=== PATIENT | female | born 1960 | race Caucasian/White ===

== ENCOUNTER → 2018-04-16 06:34 | Outpatient (CLI) | payer MEDICARE, MEDICAID, SELFPAY ==
--- NOTE | 2018-04-16 06:39 | ECHOD_ITS ---
Reason For Study: CAD/ASHD Procedure This was a 2D Doppler, Color Flow transthoracic echocardiogram. The exam was of adequate technical quality. Exam performed in department. Left Ventricle Normal LV size. Left ventricular systolic function is normal. The estimated ejection fraction is 65 %. Transmitral doppler flow suggestive of impaired relaxation of left ventricle. No regional wall motion abnormalities noted. Right Ventricle Normal RV size. Normal systolic function. Atria Normal left atrium. Normal right atrium. No doppler evidence for ASD. Mitral Valve There is no mitral annular calcification. Normal mitral valve. Trivial mitral valve insufficiency. Tricuspid Valve Normal tricuspid valve. Mild tricuspid valve insufficiency. Right ventricular systolic pressure estimated to be 34 mmHg. Aortic Valve The aortic valve is not well visualized. Pulmonic Valve The pulmonic valve is not well visualized. Trivial pulmonic valve insufficiency. Great Vessels Normal sized aortic root. Pericardium/Pleural No pericardial effusion. MMode/2D Measurements & Calculations LVIDd: 4.5 cm IVSd: 1.0 cm LVOT diam: 2.0 cm LVIDs: 2.6 cm LVPWd: 1.2 cm LVOT area: 3.1 cm2 RVDd: 3.3 cm FS: 41.8 % Ao root diam: 3.2 cm LAV(MOD-sp4): 29.3 ml LA A4 area: 13.9 cm2 LA dimension: 3.4 cm RA A4 area: 12.8 cm2 Time Measurements MV dec time: 0.23 sec Doppler Measurements & Calculations MV E max tra: 84.7 cm/sec Lat Peak E' Tra: 9.2 cm/sec Med Peak E' Tra: 8.4 cm/sec MV A max tra: 97.1 cm/sec E/E' lat: 9.2 E/E' med: 10.1 MV E/A: 0.87 MV V2 max: 116.8 cm/sec MV P1/2t max tra: 113.1 cm/sec Ao V2 max: 150.2 cm/sec MV max P.5 mmHg MV P1/2t: 100.7 msec Ao max P.0 mmHg MV V2 mean: 58.6 cm/sec MV dec slope: 329.0 cm/sec2 Ao V2 mean: 96.8 cm/sec MV mean P.7 mmHg MVA(P1/2t): 2.2 cm2 Ao mean P.2 mmHg MV V2 VTI: 38.7 cm Ao V2 VTI: 33.0 cm MVA(VTI): 2.2 cm2 ISSA(I,D): 2.5 cm2 ISSA(V,D): 2.7 cm2 LV V1 max: 128.4 cm/sec SV(LVOT): 83.8 ml PA V2 max: 98.9 cm/sec LV V1 max P.6 mmHg LV V1 mean P.5 mmHg LV V1 mean: 69.8 cm/sec LV V1 VTI: 26.9 cm TR max tra: 278.8 cm/sec TR max P.1 mmHg Interpretation Summary Left ventricular systolic function is normal. The estimated ejection fraction is 65 %. Trivial mitral valve insufficiency. Mild tricuspid valve insufficiency. Trivial pulmonic valve insufficiency. Right ventricular systolic pressure estimated to be 34 mmHg. Transmitral doppler flow suggestive of impaired relaxation of left ventricle Ordering Physician: Irving Sheikh Referring Physician: Irving Sheikh Performed By: Alexi Jones [facility]
--- NOTE | 2018-04-16 10:53 | STRESSREP ---
Stress Test Report Date: 04/16/2018 Procedure: Pharmacologic stress nuclear imaging study Indications: Chest pain Consent: Per the patient Procedure: The patient underwent pharmacologic (Regadenoson) evaluation with a peak heart rate of 84 beats per minute (52 predicted maximal heart rate) and a peak blood pressure of 152/70 mmHg. The baseline ECG demonstrated sinus bradycardia. The peak pharmacologic ECG demonstrated no obvious ECG changes. [There were no cardiac dysrhythmias pretest, during pharmacologic infusion, or recovery]. [There was no complaint of chest discomfort during pharmacologic infusion or recovery]. The examination was discontinued secondary to completion of protocol. Impression: 1. Pharmacologic (Regadenoson) evaluation 2. Peak pharmacologic ECG with no obvious ECG changes. 3. There were no cardiac dysrhythmias pretest, during pharmacologic infusion, or recovery 4. Nuclear images pending Myocardial perfusion imaging study: Technique: The patient was injected with 10.8 millicuries of technetium 99m Cardiolite and subsequently rest SPECT Cardiolite nuclear imaging was obtained in the horizontal long, vertical long, and short axis views. The patient underwent pharmacologic (Regadenoson) evaluation with a peak heart rate of 84 beats per minute (52% percent predicted maximal heart rate) and a peak blood pressure of 152/70 mmHg. The patient was injected with 33.7 millicuries of technetium 99m Cardiolite and subsequently stress SPECT Cardiolite nuclear imaging was obtained in the horizontal long, vertical long, and short axis views. A gated Cardiolite study at peak stress was obtained. Interpretation: Rest and stress SPECT Cardiolite nuclear imaging status post realignment, normalization, and attenuation correction demonstrate relative uniform tracer uptake and myocardial perfusion appearing within normal limits. [There is end systolic thickening and brightening]. [The gated Cardiolite study demonstrates myocardial thickening and inward wall motion]. The reported LVEF is 84 %. Impression: 1. [Rest and stress SPECT Cardiolite nuclear imaging demonstrate relative uniform tracer uptake and myocardial perfusion appearing within normal limits]. 2. The gated Cardiolite study reports an LVEF of before 84 %. This note was generated with [employer] software. It may contain incorrect words, spelling, and punctuation that were not noted in checking the note before signing.
== END ==
PROVIDERS: Family Provider Internal Medicine; PCP Internal Medicine; Visit Provider Internal Medicine Cardiovascular Disease
DX: I25.10 Atherosclerotic heart disease of native coronary artery without angina pectoris (principal); Z95.5 Presence of coronary angioplasty implant and graft; R07.9 Chest pain, unspecified
CPT/HCPCS: 78452; 93017; 93306; A9500; A4216; J2785

== ENCOUNTER → 2021-05-14 07:50 | Outpatient (CLI) | payer MEDICARE, MEDICAID, SELFPAY ==
[2021-05-02 15:38] VITALS: BMI 21.7
--- NOTE | 2021-05-14 07:52 | AAVD_ITS ---
Reason For Study: bruit, pulsatile abdomen Aorta Measurements Aorta Doppler Measurements Proximal aorta measures1.25 x 1.24cm. in cross- Peak systolic flow velocities within the proximal sectional axis. aorta measure 103 cm/sec. Proximal aorta measures1.23cm. in longitudinal Peak systolic flow velocities within the mid aorta axis. measure 116.1 cm/sec. Mid aorta measures1.13 x 1.16cm. in cross- Peak systolic flow velocities within the distal sectional axis. aorta measure 118.3 cm/sec. Mid aorta measures1.12cm. in longitudinal axis. Distal aorta measures1.18 x 1.18cm. in cross- sectional axis. Distal aorta measures1.18cm. in longitudinal axis. Left Iliac Artery Left iliac artery measures .65 x .69 cm. in the cross-sectional axis. Left iliac artery measures .64 cm. in the longitudinal axis. Peak systolic velocity in the left iliac artery measures 138 cm/sec. Right Iliac Artery Right iliac artery measures .59 x .58 cm. in the cross-sectional axis. Right iliac artery measures .64 cm. in the longitudinal axis. Peak systolic velocity in the right iliac artery measures 91.9 cm/sec. Procedure Aorta IVC Iliac vasculature or bypass grafts [id number]. The exam was diagnostic. Exam performed in department. VL/Abd Aortic/IVC Duplex scan Interpretation Summary No evidence of aortic iliac aneurysm or stenosis. Ordering Physician: Irving Sheikh Performed By: Jt Ortega RVT and Student
--- NOTE | 2021-05-14 07:52 | ECHOD_ITS ---
Reason For Study: HTN, CHF, HLD Procedure This was a 2D Doppler, Color Flow transthoracic echocardiogram. The exam was of adequate technical quality. Exam performed in department. Left Ventricle Normal LV size. Sigmoid septum. Left ventricular systolic function is normal. The estimated ejection fraction is 65 %. Diastolic function is indeterminate. No regional wall motion abnormalities noted. Right Ventricle Normal RV size. Normal systolic function. Mitral Valve There is no mitral annular calcification. Normal mitral valve. Mild (1+) mitral valve insufficiency. Tricuspid Valve Normal tricuspid valve. Moderate (2+) tricuspid valve insufficiency. Right ventricular systolic pressure estimated to be 33 mmHg. Aortic Valve Trisinus/trileaflet aortic valve. Normal aortic valve. Pulmonic Valve Normal pulmonic valve. Mild (1+) pulmonic valve insufficiency. Great Vessels Normal sized aortic root. Pericardium/Pleural No pericardial effusion. MMode/2D Measurements & Calculations LVIDd: 4.8 cm IVSd: 0.77 cm Ao root diam: 3.2 cm LVIDs: 3.4 cm LVPWd: 0.79 cm RVDd: 3.3 cm FS: 30.4 % LAV(MOD-sp4): 31.3 ml LVAd ap4: 23.2 cm2 LVAd ap2: 23.5 cm2 LVLd ap4: 6.9 cm LVLd ap2: 7.4 cm EDV(MOD-sp4): 64.3 ml EDV(MOD-sp2): 62.7 ml EDV(sp4-el): 66.7 ml EDV(sp2-el): 63.0 ml LVAs ap4: 12.2 cm2 LVAs ap2: 14.1 cm2 LVLs ap4: 5.3 cm LVLs ap2: 5.6 cm ESV(MOD-sp4): 23.3 ml ESV(MOD-sp2): 30.3 ml ESV(sp4-el): 23.7 ml ESV(sp2-el): 30.3 ml EF(MOD-sp4): 63.7 % EF(MOD-sp2): 51.7 % EF(sp4-el): 64.4 % SV(MOD-sp4): 41.0 ml SV(MOD-sp2): 32.5 ml SV(sp4-el): 42.9 ml LA dimension(2D): 3.4 cm LA A4 area: 13.7 cm2 RA A4 area: 10.2 cm2 Time Measurements MV dec time: 0.21 sec Doppler Measurements & Calculations MV E max tra: 79.0 cm/sec Lat Peak E' Tra: 9.2 cm/sec Med Peak E' Tra: 5.5 cm/sec MV A max tra: 114.4 cm/sec E/E' lat: 8.6 E/E' med: 14.4 MV E/A: 0.69 Ao V2 max: 134.0 cm/sec LV V1 max: 99.1 cm/sec PA V2 max: 98.2 cm/sec Ao max P.2 mmHg LV V1 max P.9 mmHg PI end-d tra: 109.3 cm/sec TR max tra: 272.4 cm/sec TR max P.7 mmHg ECHO/Echo Complete Interpretation Summary Left ventricular systolic function is normal. The estimated ejection fraction is 65 %. Sigmoid septum. Mild (1+) mitral valve insufficiency. Moderate (2+) tricuspid valve insufficiency. Mild (1+) pulmonic valve insufficiency. Right ventricular systolic pressure estimated to be 33 mmHg. Diastolic function is indeterminate. Ordering Physician: Irving Sheikh Referring Physician: VIANCA ZAZUETA Performed By: Khadra Tolliver, JASWANT, RVT
== END ==
PROVIDERS: PCP Internal Medicine; Referring Provider Internal Medicine Cardiovascular Disease; Visit Provider Internal Medicine Cardiovascular Disease
DX: I25.10 Atherosclerotic heart disease of native coronary artery without angina pectoris (principal); R09.89 Other specified symptoms and signs involving the circulatory and respiratory systems; I11.0 Hypertensive heart disease with heart failure; I50.9 Heart failure, unspecified; E78.5 Hyperlipidemia, unspecified; Z95.5 Presence of coronary angioplasty implant and graft; R19.8 Other specified symptoms and signs involving the digestive system and abdomen
CPT/HCPCS: 93306; 93978

== ENCOUNTER → 2021-05-17 06:43 | Outpatient (CLI) | payer MEDICARE, MEDICAID, SELFPAY ==
[2021-05-02 15:38] VITALS: BMI 21.7
--- NOTE | 2021-05-17 10:55 | STRESSREP ---
Stress Test Report Date: 05-17-2021 Procedure: Pharmacologic stress nuclear imaging study Indications: CAD; PCI; preoperative cardiovascular assessment Consent: Per the patient Procedure: The patient underwent pharmacologic (Regadenoson 0.4mg ) evaluation with a peak heart rate of 117 beats per minute (74%predicted maximal heart rate) and a peak blood pressure of 188/76 mmHg. The baseline ECG demonstrated sinus rhythm. The peak pharmacologic ECG demonstrated no obvious ECG changes. There was an occasional PAC during recovery. There was no complaint of chest discomfort during pharmacologic infusion or recovery. The examination was discontinued secondary to completion of protocol. Impression: 1. Pharmacologic (Regadenoson) evaluation 2. Peak pharmacologic ECG with no obvious ECG changes. 3. There was an occasional PAC during recovery. 4. Nuclear images pending Myocardial perfusion imaging study: Technique: The patient was injected with 10.2 millicuries of technetium 99m Cardiolite and subsequently rest SPECT Cardiolite nuclear imaging was obtained in the horizontal long, vertical long, and short axis views. The patient underwent pharmacologic (Regadenoson) evaluation with a peak heart rate of 117 beats per minute (74% percent predicted maximal heart rate) and a peak blood pressure of 188/76 mmHg. The patient was injected with 33.1 millicuries of technetium 99m Cardiolite and subsequently stress SPECT Cardiolite nuclear imaging was obtained in the horizontal long, vertical long, and short axis views. A gated Cardiolite study at peak stress was obtained. Interpretation: Rest and stress SPECT Cardiolite nuclear imaging status post realignment, normalization, and attenuation correction demonstrate relative uniform tracer uptake and myocardial perfusion appearing within normal limits. There is end systolic thickening and brightening. The gated Cardiolite study demonstrates myocardial thickening and inward wall motion. The reported LVEF is 72%. Impression: 1. Rest and stress SPECT Cardiolite nuclear imaging demonstrate relative uniform tracer uptake and myocardial perfusion appearing within normal limits. 2. The gated Cardiolite study reports an LVEF of 72%. This note was generated with [employer] software. It may contain incorrect words, spelling, and punctuation that were not noted in checking the note before signing.
== END ==
PROVIDERS: PCP Internal Medicine; Referring Provider Internal Medicine Cardiovascular Disease; Visit Provider Internal Medicine Cardiovascular Disease
DX: R09.89 Other specified symptoms and signs involving the circulatory and respiratory systems (principal); R19.8 Other specified symptoms and signs involving the digestive system and abdomen; I25.10 Atherosclerotic heart disease of native coronary artery without angina pectoris; I50.9 Heart failure, unspecified; E78.5 Hyperlipidemia, unspecified; I11.0 Hypertensive heart disease with heart failure; Z95.5 Presence of coronary angioplasty implant and graft
CPT/HCPCS: 78452; 93017; A9500; A4216; J2785

== ENCOUNTER → 2022-09-05 | Outpatient (CLI) | payer MEDICARE, MEDICAID, SELFPAY ==
--- NOTE | 2022-09-05 12:55 | CDU_ITS ---
Reason For Study: Bruit Rt. Velocities/BP Lt. Velocities/BP Prox CCA 99.8/13.9 cm/sec. Prox CCA 90.6/13.9 cm/sec. Mid CCA 94.2/13.9 cm/sec. Mid CCA 77.8/15.7 cm/sec. Dist CCA 63.2/12.1 cm/sec. Dist CCA 66.8/13.9 cm/sec. Prox ICA 56.4/11.9 cm/sec. Prox ICA 168.1/38.6 cm/sec. Mid ICA 69.4/18.0 cm/sec. Mid ICA 186.3/24.6 cm/sec. Dist ICA 65.0/15.5 cm/sec. Dist ICA 127.1/19.4 cm/sec. Rt. ICA/CCA = 0.7. Lt. ICA/CCA = 2.4. Prox ECA 87.5/6.2 cm/sec. Prox ECA 135.2/18.9 cm/sec. Rt. Vert. 19.9/4.2 cm/sec. Lt. Vert. 37.4/11.9 cm/sec. Right Extracranial There is heterogeneous, smooth atherosclerotic plaque noted in the right common carotid artery. There is heterogeneous, irregular atherosclerotic plaque noted in the right internal carotid artery. There is heterogeneous, irregular atherosclerotic plaque noted in the right external carotid artery. Antegrade flow is noted in the right vertebral artery. Left Extracranial There is heterogeneous, smooth atherosclerotic plaque noted in the left common carotid artery. There is heterogeneous, irregular atherosclerotic plaque noted in the left internal carotid artery. There is heterogeneous, irregular atherosclerotic plaque noted in the left external carotid artery. Antegrade flow is noted in the left vertebral artery. Procedure Carotid Duplex [id number]. This is a Carotid Duplex examination using B-mode, color flow and specral Doppler. The exam was diagnostic. Exam performed in department. VL/Carotid Duplex Ultrasound Interpretation Summary Irregular heterogenous plaque at the proximal right internal carotid artery wit h less than 50% stenosis Less than 50% stenosis right external carotid artery Irregular plaque at the proximal left internal carotid artery with 50 [address] 69% [address] enosis Less than 50% stenosis left external carotid artery Patent antegrade flow bilateral vertebrals Ordering Physician: Irving Sheikh Referring Physician: Irving Sheikh Performed By: Washington Cote RVT
== END | disposition home or self-care (01) ==
LOC: CVS 12:54
PROVIDERS: PCP Nurse Practitioner Family; Referring Provider Internal Medicine Cardiovascular Disease; Visit Provider Internal Medicine Cardiovascular Disease
DX: R09.89 Other specified symptoms and signs involving the circulatory and respiratory systems (principal); Z01.810 Encounter for preprocedural cardiovascular examination; I25.10 Atherosclerotic heart disease of native coronary artery without angina pectoris
CPT/HCPCS: 93880